=== PATIENT | female | born 1950 | race Caucasian/White ===

== ENCOUNTER 2020-09-08 02:12 | Emergency (ER) | payer MEDICARE, BC, SELFPAY ==
[2020-09-08] VITALS (24 sets, daily range): BP systolic 116–164; BP diastolic 59–82; PULSE 50–70; RESP 12–24; TEMP 36.7; O2SAT 94–100; BMI 25.8
--- NOTE | 2020-09-08 02:18 | DI.CT.S_ITS ---
PROCEDURE: CT HEAD/BRAIN WO CON INDICATIONS: Acute memory loss TECHNIQUE: Noncontrast 4.5 mm thick angled axial sections acquired from the foramen magnum to the vertex, with coronal and sagittal reformats. For radiation dose reduction, the following was used: automated exposure control, adjustment of mA and/or kV according to patient size. COMPARISON: None. FINDINGS: Image quality: Excellent. CSF spaces: Basal cisterns are patent. No extra-axial fluid collections. The ventricles are symmetric in size and shape. Brain: No intracranial bleeds or masses. There is cerebral volume loss for age, with resultant ventricular and sulcal prominence. There are periventricular and deep white matter chronic small vessel ischemic changes. There is intracranial internal carotid artery atherosclerosis. Skull and face: Calvarium and visualized facial bones appear intact, without suspicious lesions. Sinuses: Visualized sinuses and mastoids are clear. IMPRESSION: No acute intracranial process. Findings concordant with preliminary study interpretation. Dictated by: Edmond Catalan M.D. on 09/08/2020 at 8:14 Approved by: Edmond Catalan M.D. on 09/08/2020 at 8:17
--- NOTE | 2020-09-08 02:24 | DI.CT.S_ITS ---
PROCEDURE: CT ANGIO HEAD AND NECK INDICATIONS: code stroke, acute memory loss TECHNIQUE: After the administration of intravenous contrast, 1 mm thick sections acquired from the aortic arch through the [place] of [place]. Post-contrast 4.5 mm thick sections then re-acquired from the foramen magnum to the vertex. 3-dimensional [id number] (MIP) and/or volume rendering reformats were acquired of the central intracranial vasculature and neck separately. COMPARISON: None. FINDINGS: BRAIN: CSF spaces: Most of wall and Brain: No midline shift. No intracranial bleeds or masses. Schafer-white matter interface appears intact. Skull and face: Calvarium and facial bones appear intact, without suspicious lesions. Orbits appear normal. Sinuses: Sinuses and mastoids are clear. HEAD CT ANGIOGRAPHY: Anterior circulation: Intracranial internal carotid arteries (ICA): Diffuse atherosclerosis involving the right ICA with near occlusive stenosis at the precavernous segment. Otherwise, [id number] appears patent. Anterior cerebral arteries (JON): Patent. Middle cerebral arteries (MCA): Patent. Other: No aneurysms are seen. Posterior circulation: Visualized portions of the vertebral arteries: Patent. Mildly dominant appearance of the left vertebral artery. Basilar artery: Patent. Posterior cerebral arteries (FORKL[employer] SUPERVISOR): Patent. 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 There is mild ectasia at the junction of the right P1 and P2 segments. NECK CT ANGIOGRAPHY: Carotid atherosclerotic findings: Minimal calcified plaque. Common carotid artery (CCA) origins: Patent. Common carotid arteries (CCA): Patent. Internal carotid arteries (ICA): Mild diffuse narrowing of the right cervical ICA. There is tortuous appearance at the origin/proximal segment(rather than small dissection). This is best seen on the sagittal images. Vertebral artery origins: Calcific plaque seen at the origins of both vertebral arteries which appear patent Extracranial vertebral arteries: Patent. Mildly dominant appearance of the left vertebral artery. Basilar artery: Patent. Soft tissues: Visualized neck soft tissues demonstrate no suspicious abnormalities. Bones: No suspicious bony lesions. Cervical spondylosis and facet arthropathy. 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 Diffuse atherosclerotic narrowing involving the right internal carotid artery with near occlusive stenosis at the precavernous segment. Distal reconstitution and patent appearance of the [id number]. Findings concordant with preliminary study interpretation. Any quantitative measurements of stenosis were performed using NASCET criteria. Dictated by: Edmond Catalan M.D. on 09/08/2020 at 8:23 Approved by: Edmond Catalan M.D. on 09/08/2020 at 9:12
--- NOTE | 2020-09-08 02:50 | ED_ITS ---
HPI - Neuro Symptoms/Deficit <Jas Lee DO - Last Filed: 09/08/20 17:55> General Chief Complaint: Neuro Symptoms/Deficit Stated Complaint: sudden memory loss Time Seen by Provider: 09/08/20 02:16 Source: patient and family Mode of arrival: Ambulatory Limitations: no limitations History of Present Illness HPI Narrative: Patient is a 70-year-old female who is here with her son for eval uation of a acute episode where she became confused at home. Patient is from [place]. Her and her son who is with her at bedside arrived to the local area earlier this evening. This is where her son lives. According to the son they were sitting at home talking when the patient suddenly became confused. This occurred approximately 1 hour prior to arrival. There was no trauma. Upon arrival the patient did seem very anxious and somewhat reluctant to answer questions. Initially was difficult to obtain in HPI from the patient. On Anticoagulants: No Related Data Home Medications Medication Instructions Recorded Confirmed aspirin 81 mg tablet 81 mg PO QPM 09/08/20 09/08/20 fenofibrate nanocrystallized 145 145 mg PO QPM 09/08/20 09/08/20 mg tablet Previous Rx's Medication Instructions Recorded apixaban 5 mg tablet (Eliquis) 5 mg PO BID #30 tab 09/08/20 Allergies Allergy/AdvReac Type Severity Reaction Status Date / Time Penicillins Allergy Verified 09/08/20 02:33 Sulfa (Sulfonamide Allergy Verified 09/08/20 02:33 Antibiotics) Review of Systems <DO Andrey Christianson Last Filed: 09/08/20 17:55> Review of Systems ROS Unobtainable: Unobtainable due to mental condition Hematologic/Lymphatic On Anticoagulants: No Patient History <DO Andrey Christianson Last Filed: 09/08/20 17:55> Medical History Brain aneurysm Pulmonary embolism Social History Smoking Status: Unknown if ever smoked Smoking Status: Unknown if ever smoked alcohol intake frequency: holidays/special occasions only Substance Use Type: does not use Exam <DO Andrey Christianson Last Filed: 09/08/20 17:55> Initial Vital Signs Initial Vital Signs: Vital Signs Pulse Rate 67 09/08/20 02:21 Pulse Oximetry 99 09/08/20 02:21 Const General: healthy appearing, comfortable, well developed and well groomed HENMT Head: normal to inspection and normocephalic Eyes General: appearance normal, both eyes and all related structures Pupils: PERRL EOM: EOM intact bilaterally Neck Neck: normal visual inspection Chest Chest: No tenderness Resp Effort & Inspection: normal respiratory effort and not tachypneic Auscultation: clear to auscultation bilaterally Cardio Rate: regular rate Rhythm: regular rhythm GI Inspection: normal to inspection Palpation: soft Skin General: no rashes or lesions noted Neuro General: patient alert, patient awake and patient oriented x3 Cranial Nerves: CN's II-XI intact bilaterally Speech: other (Speech is slow but not slurred) Motor: muscle tone normal throughout Sensory Exam: no sensory deficits noted Extrem General: normal to inspection and capillary refill normal Psych Appearance: grossly normal and well kempt <Bettie Hendrix DO - Last Filed: 09/08/20 20:29> Initial Vital Signs Initial Vital Signs: Vital Signs Pulse Rate 67 09/08/20 02:21 Pulse Oximetry 99 09/08/20 02:21 Scores <DO Andrey Christianson Last Filed: 09/08/20 17:55> GCS [place] coma scale eye opening: Spontaneous Yara coma scale verbal response: Orientated [place] coma scale motor response: Obey commands [place] coma scale total score: 15 NIH Stroke Scale Level of Conciousness: Alert, keenly responsive Ask month/age: Answers both questions correctly. Open/close eyes, close hand: Performs both tasks correctly Best gaze horizontal: Normal Visual nascimento: No visual loss Facial palsy: Normal symetrical movement Left arm drift: No drift for full 10 sec Right arm drift: No drift for full 10 sec Left leg drift: No drift for full 5 sec Right leg drift: No drift for full 5 sec Limb ataxia: Absent Sensory on face/arms/legs: Normal, no sensory loss Best language: No aphasia, normal Dysarthria: Normal Extinction or inattention: No abnormality Total NIH Stroke scale score: 0 <DO Andrey Mchugh Last Filed: 09/08/20 20:29> GCS [place] coma scale total score: 15 NIH Stroke Scale Total NIH Stroke scale score: 0 Course <DO Andrey Christianson Last Filed: 09/08/20 17:55> Orders Ordered: Discontinued Medications Apixaban (Apixaban 5 Mg Tablet) 5 mg PO NOW ONE Stop: 09/08/20 10:04 Last Admin: 09/08/20 11:58 Dose: 5 mg Documented by: JOSH Vital Signs Vital signs: Vital Signs - 8 hr 09/08/20 12:30 09/08/20 12:31 09/08/20 13:00 Pulse Rate 53 L 54 L 52 L Respiratory Rate 14 15 13 Blood Pressure 141/67 H 143/65 H Pulse Oximetry 97 97 09/08/20 13:30 09/08/20 14:00 09/08/20 14:30 Pulse Rate 54 L 61 54 L Respiratory Rate 12 17 15 Blood Pressure 133/63 128/61 116/60 Pulse Oximetry 09/08/20 15:00 09/08/20 15:30 09/08/20 15:31 Pulse Rate 60 51 L 50 L Respiratory Rate 18 13 13 Blood Pressure 124/59 L 144/68 H Pulse Oximetry 09/08/20 16:00 Pulse Rate 54 L Respiratory Rate 14 Blood Pressure Pulse Oximetry 99 <Bettie Hendrix DO - Last Filed: 09/08/20 20:29> Orders Ordered: Discontinued Medications Apixaban (Apixaban 5 Mg Tablet) 5 mg PO NOW ONE Stop: 09/08/20 10:04 Last Admin: 09/08/20 11:58 Dose: 5 mg Documented by: JOSH Reevaluation(s) Reevaluation #1: [id number]-recheck patient states her symptoms have improved at this time. She is feeling much better. She was aware of a single aneurysm but not a secondary on MRI and dissection. Reevaluation #2: Patient updated again on MRI results, CTA angio and ECHO results. Patient placed on Eliquis 5mg BID. After discussion with patient. She had stopped her Coumadin in the past after having a brain fog. Patient's symptoms have cleared. We had reviewed her exam, findings here in the department, her observation here in the department. Patient is planning to return home to [place] in the next week. [place] town so asked to go ahead and call her primary care physician today or tomorrow to help facilitate follow-up as an outpatient with Neurology and preferably a stroke clinic if able but if Physical distance is prohibitive at minimum Neurology and potentially neurosurgery. Return precautions were discussed. Consultations Consultation #1: Spoke with telestroke regarding MRI changes. There was some change in comparison to patient's CT angiography although this may be secondary to modality. MRI this morning shows right possible age-indeterminate carotid dissection verses diffuse atherosclerosis, 3 mm saccular aneurysm at the anterior communicating as well as a 5 mm right posterior which was also noted on CT angiography. These were all read is no acute changes. Discussed with tele stroke who recommends that these are atypical places for abnormalities in terms of the atherosclerosis, and common area for dissection but is possible. And patient may have been symptomatic but there is no acute stroke changes or flares noted. She does recommend observation, 2D echo with bubble study and starting anticoagulation. At this time she recommends NOAC such as apixaban 5 mg b.i.d. and follow up with a stroke clinic for long-term care. Patient can follow-up [facility] if she continues to be local. Kuldeep called back, she did review the case with Dr. Ezequiel Jay with Neurosurgery who agrees with medication and plan. patient and son have contact information below for stroke clinic as well as Neurosurgery office. Consultation #2: Dr. Gann, hospitalist if negative ECHO. Plan for discharge from ED. Patient if has negative work up with ECHO and admitted would be discharged today as well. Vital Signs Vital signs: Vital Signs - 8 hr 09/08/20 12:30 09/08/20 12:31 09/08/20 13:00 Pulse Rate 53 L 54 L 52 L Respiratory Rate 14 15 13 Blood Pressure 141/67 H 143/65 H Pulse Oximetry 97 97 09/08/20 13:30 09/08/20 14:00 09/08/20 14:30 Pulse Rate 54 L 61 54 L Respiratory Rate 12 17 15 Blood Pressure 133/63 128/61 116/60 Pulse Oximetry 09/08/20 15:00 09/08/20 15:30 09/08/20 15:31 Pulse Rate 60 51 L 50 L Respiratory Rate 18 13 13 Blood Pressure 124/59 L 144/68 H Pulse Oximetry 09/08/20 16:00 Pulse Rate 54 L Respiratory Rate 14 Blood Pressure Pulse Oximetry 99 MDM - Neuro Symptoms/Deficit <Jas Lee DO - Last Filed: 09/08/20 17:55> Lab Data Attestation: I reviewed the patient's lab results. Result diagrams: 09/08/20 02:30 09/08/20 02:30 Labs: Lab Results 09/08/20 09/08/20 09/08/20 Range/Units 02:30 02:30 02:58 WBC 6.5 (4.5-11.0) X10^3/uL RBC 4.81 (4.0-5.2) X10^6/uL Hgb 14.3 (12.0-16.0) g/dL Hct 42.1 (36-46) % MCV 87.5 (80-100) fL MCH 29.8 (26-34) PG MCHC 34.1 (30-36) % RDW 14.0 (11.6-14.8) % Plt Count 267 (150-400) X10^3/uL Neut % (Auto) 43.7 L (50-75) % Lymph % (Auto) 42.0 H (25-40) % Pierce % (Auto) 8.6 (3-14) % Eos % (Auto) 4.7 H (2-4) % Baso % (Auto) 1.0 (0-2) % Neut # (Auto) 2900 (8634-0229) /uL Lymph # (Auto) 2700 (8328-1906) /uL Pierce # (Auto) 600 (0-900) /uL Eos # (Auto) 300 (0-450) /uL Baso # (Auto) 100 (0-100) /uL Sodium 142 (137-145) mmol/L Potassium 3.6 (3.4-5.1) mmol/L Chloride 110 H (98-107) mmol/L Carbon Dioxide 26 (22-32) mmol/L BUN 25 H (7-17) mg/dL Creatinine 1.34 H (0.52-1.04) mg/dL Estimated GFR 39.1 L (>60) mL/min BUN/Creatinine Ratio 18.7 (6-22) Glucose 96 (80-110) mg/dL Calcium 9.8 (8.4-10.2) mg/dL Total Bilirubin 0.7 (0.2-1.3) mg/dL AST 31 (14-36) IU/L ALT 24 (<35) IU/L Alkaline Phosphatase 55 (38-126) U/L Total Protein 7.3 (6.3-8.2) g/dL Albumin 4.5 (3.5-5.0) g/dL Globulin 2.8 (1.7-4.1) g/dL Albumin/Globulin Ratio 1.6 (1.0-2.8) Lipase 134 (23-300) U/L Urine Color Yellow Urine Appearance Clear Urine pH 7.0 (4.5-8.0) Ur Specific [place] <=1.005 (1.000-1.035) Urine Protein Negative (Negative) Urine Glucose (UA) Negative (Negative) g/dL Urine Ketones Negative (NEGATIVE) Urine Occult Blood 1+ H (Negative) Urine Nitrate Negative (Negative) Urine Bilirubin Negative (NEGATIVE) Urine Urobilinogen 0.2 (0.2) E.U./dL Ur Leukocyte Esterase Trace H (NEGATIVE) Urine RBC None seen (0-5/HPF) Urine WBC None seen (0-5/HPF) Urine Bacteria None seen (None) Ur Culture Indicated? Cult not indicated U Opiates 300ng/mL cut (Negative) Ur Oxycodone Screen (Negative) Urine Methadone Screen (Negative) Ur Barbiturates Screen (Negative) U Tricyclic Antidepress (Negative) Ur Phencyclidine Scrn (Negative) Ur Amphetamines Screen (Negative) U Methamphetamines Scrn (Negative) Ur MDMA Scrn (Ecstasy) (Negative) U Benzodiazepines Scrn (Negative) Urine Cocaine Screen (Negative) U Marijuana (THC) Screen (Negative) Ethyl Alcohol < 10 ( - 10) mg/dL SARS-CoV-2 (PCR) (Negative) 09/08/20 09/08/20 Range/Units 02:58 03:05 WBC (4.5-11.0) X10^3/uL RBC (4.0-5.2) X10^6/uL Hgb (12.0-16.0) g/dL Hct (36-46) % MCV (80-100) fL MCH (26-34) PG MCHC (30-36) % RDW (11.6-14.8) % Plt Count (150-400) X10^3/uL Neut % (Auto) (50-75) % Lymph % (Auto) (25-40) % Pierce % (Auto) (3-14) % Eos % (Auto) (2-4) % Baso % (Auto) (0-2) % Neut # (Auto) (2926-1371) /uL Lymph # (Auto) (3591-3324) /uL Pierce # (Auto) (0-900) /uL Eos # (Auto) (0-450) /uL Baso # (Auto) (0-100) /uL Sodium (137-145) mmol/L Potassium (3.4-5.1) mmol/L Chloride (98-107) mmol/L Carbon Dioxide (22-32) mmol/L BUN (7-17) mg/dL Creatinine (0.52-1.04) mg/dL Estimated GFR (>60) mL/min BUN/Creatinine Ratio (6-22) Glucose (80-110) mg/dL Calcium (8.4-10.2) mg/dL Total Bilirubin (0.2-1.3) mg/dL AST (14-36) IU/L ALT (<35) IU/L Alkaline Phosphatase (38-126) U/L Total Protein (6.3-8.2) g/dL Albumin (3.5-5.0) g/dL Globulin (1.7-4.1) g/dL Albumin/Globulin Ratio (1.0-2.8) Lipase (23-300) U/L Urine Color Urine Appearance Urine pH (4.5-8.0) Ur Specific [place] (1.000-1.035) Urine Protein (Negative) Urine Glucose (UA) (Negative) g/dL Urine Ketones (NEGATIVE) Urine Occult Blood (Negative) Urine Nitrate (Negative) Urine Bilirubin (NEGATIVE) Urine Urobilinogen (0.2) E.U./dL Ur Leukocyte Esterase (NEGATIVE) Urine RBC (0-5/HPF) Urine WBC (0-5/HPF) Urine Bacteria (None) Ur Culture Indicated? U Opiates 300ng/mL cut Negative (Negative) Ur Oxycodone Screen Negative (Negative) Urine Methadone Screen Negative (Negative) Ur Barbiturates Screen Negative (Negative) U Tricyclic Antidepress Negative (Negative) Ur Phencyclidine Scrn Negative (Negative) Ur Amphetamines Screen Negative (Negative) U Methamphetamines Scrn Negative (Negative) Ur MDMA Scrn (Ecstasy) Negative (Negative) U Benzodiazepines Scrn Negative (Negative) Urine Cocaine Screen Negative (Negative) U Marijuana (THC) Screen Negative (Negative) Ethyl Alcohol ( - 10) mg/dL SARS-CoV-2 (PCR) Negative (Negative) Imaging Data CT scan - head: Radiologist's Impression: No acute intracranial findings CT angio head neck: Radiologist's Impression: Patent neck CTA Atherosclerotic changes of the intracranial right internal carotid artery with severe near occlusive stenosis of the pre-catheter segment. Vessels remain patent about the [place]. 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 Ectasia of the right posterior cerebral artery P1 P2 junction ECG Data Attestation: I personally reviewed and interpreted this ECG as follows: Interpretation: Sinus rhythm Ventricular rate is 63 Normal axis Normal QRS Normal QTC No ST T wave changes MDM Narrative Medical decision making narrative: Upon arrival was somewhat difficult to obtain in HPI from the patient. She did not have any repetitive questioning but did not volunteer any information. She was able to speak without any slurring of the words but she was somewhat slow to do so. Her NIH score was 0. She was alert oriented x3 and had a GCS of 15. Her head CT was unremarkable. The CTA of her head neck showed the abnormalities as listed above. I did discuss the case with Stroke Neurology who agreed with no tPA given her clinical presentation. Much of the HPI the review of systems was provided by the patient's son who is at bedside. Upon re-evaluation the patient stated that she was feeling much better. She stated that she recognized that she was sitting at home and then suddenly did not recognize where she was. She states she knew that she was brought into the kitchen and again did not recognize the kitchen. Her physical exam and history is not consistent with a seizure. Not consistent with hypoglycemia. Did consider TGA given her presentation in this still could be the cause of her symptoms. There is no signs of a head bleed. There is no bed availability for admission to this facility so plan of his to keep her in the emergency department and obtain an MRI later this morning for further evaluation. Care turned over to Dr. Hendrix to follow-up on MRI and disposition. <Bettie Hendrix, DO - Last Filed: 09/08/20 20:29> Lab Data Labs: Lab Results 09/08/20 09/08/20 09/08/20 Range/Units 02:30 02:30 02:58 WBC 6.5 (4.5-11.0) X10^3/uL RBC 4.81 (4.0-5.2) X10^6/uL Hgb 14.3 (12.0-16.0) g/dL Hct 42.1 (36-46) % MCV 87.5 (80-100) fL MCH 29.8 (26-34) PG MCHC 34.1 (30-36) % RDW 14.0 (11.6-14.8) % Plt Count 267 (150-400) X10^3/uL Neut % (Auto) 43.7 L (50-75) % Lymph % (Auto) 42.0 H (25-40) % Pierce % (Auto) 8.6 (3-14) % Eos % (Auto) 4.7 H (2-4) % Baso % (Auto) 1.0 (0-2) % Neut # (Auto) 2900 (5681-3326) /uL Lymph # (Auto) 2700 (3718-0855) /uL Pierce # (Auto) 600 (0-900) /uL Eos # (Auto) 300 (0-450) /uL Baso # (Auto) 100 (0-100) /uL Sodium 142 (137-145) mmol/L Potassium 3.6 (3.4-5.1) mmol/L Chloride 110 H (98-107) mmol/L Carbon Dioxide 26 (22-32) mmol/L BUN 25 H (7-17) mg/dL Creatinine 1.34 H (0.52-1.04) mg/dL Estimated GFR 39.1 L (>60) mL/min BUN/Creatinine Ratio 18.7 (6-22) Glucose 96 (80-110) mg/dL Calcium 9.8 (8.4-10.2) mg/dL Total Bilirubin 0.7 (0.2-1.3) mg/dL AST 31 (14-36) IU/L ALT 24 (<35) IU/L Alkaline Phosphatase 55 (38-126) U/L Total Protein 7.3 (6.3-8.2) g/dL Albumin 4.5 (3.5-5.0) g/dL Globulin 2.8 (1.7-4.1) g/dL Albumin/Globulin Ratio 1.6 (1.0-2.8) Lipase 134 (23-300) U/L Urine Color Yellow Urine Appearance Clear Urine pH 7.0 (4.5-8.0) Ur Specific [place] <=1.005 (1.000-1.035) Urine Protein Negative (Negative) Urine Glucose (UA) Negative (Negative) g/dL Urine Ketones Negative (NEGATIVE) Urine Occult Blood 1+ H (Negative) Urine Nitrate Negative (Negative) Urine Bilirubin Negative (NEGATIVE) Urine Urobilinogen 0.2 (0.2) E.U./dL Ur Leukocyte Esterase Trace H (NEGATIVE) Urine RBC None seen (0-5/HPF) Urine WBC None seen (0-5/HPF) Urine Bacteria None seen (None) Ur Culture Indicated? Cult not indicated U Opiates 300ng/mL cut (Negative) Ur Oxycodone Screen (Negative) Urine Methadone Screen (Negative) Ur Barbiturates Screen (Negative) U Tricyclic Antidepress (Negative) Ur Phencyclidine Scrn (Negative) Ur Amphetamines Screen (Negative) U Methamphetamines Scrn (Negative) Ur MDMA Scrn (Ecstasy) (Negative) U Benzodiazepines Scrn (Negative) Urine Cocaine Screen (Negative) U Marijuana (THC) Screen (Negative) Ethyl Alcohol < 10 ( - 10) mg/dL SARS-CoV-2 (PCR) (Negative) 09/08/20 09/08/20 Range/Units 02:58 03:05 WBC (4.5-11.0) X10^3/uL RBC (4.0-5.2) X10^6/uL Hgb (12.0-16.0) g/dL Hct (36-46) % MCV (80-100) fL MCH (26-34) PG MCHC (30-36) % RDW (11.6-14.8) % Plt Count (150-400) X10^3/uL Neut % (Auto) (50-75) % Lymph % (Auto) (25-40) % Pierce % (Auto) (3-14) % Eos % (Auto) (2-4) % Baso % (Auto) (0-2) % Neut # (Auto) (9597-9509) /uL Lymph # (Auto) (0674-6704) /uL Pierce # (Auto) (0-900) /uL Eos # (Auto) (0-450) /uL Baso # (Auto) (0-100) /uL Sodium (137-145) mmol/L Potassium (3.4-5.1) mmol/L Chloride (98-107) mmol/L Carbon Dioxide (22-32) mmol/L BUN (7-17) mg/dL Creatinine (0.52-1.04) mg/dL Estimated GFR (>60) mL/min BUN/Creatinine Ratio (6-22) Glucose (80-110) mg/dL Calcium (8.4-10.2) mg/dL Total Bilirubin (0.2-1.3) mg/dL AST (14-36) IU/L ALT (<35) IU/L Alkaline Phosphatase (38-126) U/L Total Protein (6.3-8.2) g/dL Albumin (3.5-5.0) g/dL Globulin (1.7-4.1) g/dL Albumin/Globulin Ratio (1.0-2.8) Lipase (23-300) U/L Urine Color Urine Appearance Urine pH (4.5-8.0) Ur Specific [place] (1.000-1.035) Urine Protein (Negative) Urine Glucose (UA) (Negative) g/dL Urine Ketones (NEGATIVE) Urine Occult Blood (Negative) Urine Nitrate (Negative) Urine Bilirubin (NEGATIVE) Urine Urobilinogen (0.2) E.U./dL Ur Leukocyte Esterase (NEGATIVE) Urine RBC (0-5/HPF) Urine WBC (0-5/HPF) Urine Bacteria (None) Ur Culture Indicated? U Opiates 300ng/mL cut Negative (Negative) Ur Oxycodone Screen Negative (Negative) Urine Methadone Screen Negative (Negative) Ur Barbiturates Screen Negative (Negative) U Tricyclic Antidepress Negative (Negative) Ur Phencyclidine Scrn Negative (Negative) Ur Amphetamines Screen Negative (Negative) U Methamphetamines Scrn Negative (Negative) Ur MDMA Scrn (Ecstasy) Negative (Negative) U Benzodiazepines Scrn Negative (Negative) Urine Cocaine Screen Negative (Negative) U Marijuana (THC) Screen Negative (Negative) Ethyl Alcohol ( - 10) mg/dL SARS-CoV-2 (PCR) Negative (Negative) Imaging Data MRI : Radiologist's Impression: Jaycee Cisse 70 F 1950 [place] [address] [place] [id number] Resonance ReportSig kristin Patient: Jaycee Cisse [facility]#: [id number]: 1950cct:[id number]/Sex: 70 / FDate of Service: 09/08/20Loc: EDAccession Number: [id number] Procedure: MR stroke Ordering Provider: Jas Lee D.O. PROCEDURE: MR STROKE Pre- and post-contrast brain MRI, non-contrast brain MR angiogram, pre- and postcontrast neck MR angiogram INDICATIONS: acute confusion eval for stroke TECHNIQUE: Brain: Noncontrast axial T1 spin echo, axial T2 fast spin echo, sagittal and axial FLAIR, coronal T2 fast spin echo, axial gradient echo, axial diffusion and ADC through the brain. After the administration of contrast, axial 3D VIBE of the cranial vasculature and brain. Brain MRA: Non-contrast 3-D time of flight MR angiogram, with multiple yzrgmtq-fsmoxdrka-ptvkkexpuu (MIP) reformats performed. Neck MRA: Axial and sagittal TruFISP through the neck. Coronal dynamic MR angiogram during administration of contrast in the arterial and venous phases, with 3-dimenstional ibneanz-yriwmfazt-rrfubpnkol (MIP) reformats constructed from subtraction images. COMPARISON: [facility], CT, CT ANGIO HEAD AND NECK, 09/08/2020, 2:31. FINDINGS: Image quality: Excellent. BRAIN: CSF spaces: Ventricles are normal in size and shape. Basal cisterns are patent. No extra-axial fluid collections. Brain: No intracranial bleeds or mass effects. There is mild diffuse cerebral volume loss. Mild degree of patchy high FLAIR signal within the periventricular and subcortical white matter. Schafer-white matter interface is normal. Diffusion weighted images show no acute ischemic insults. Brainstem appears normal. Normal intravascular flow voids are present. No abnormal intracranial enhancement. Skull and face: Calvarial marrow signal is normal. Orbits appear normal. Sinuses: Sinuses and mastoids are clear. BRAIN MR ANGIOGRAM: Anterior circulation: There is severe narrowing of the pre cavernous segment of the right internal carotid artery, which may be secondary to age indeterminate dissection. Left internal carotid artery is patent. Bilateral middle and anterior cerebral arteries are patent. 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 Posterior circulation: Bilateral vertebral arteries are patent. Basilar artery is patent. Left posterior cerebral artery is patent. There is aneurysmal d ilatation of the proximal right posterior cerebral artery, measuring 5 mm diameter. Ectasia of the P1/P2 segment of the right posterior cerebral artery. NECK MR ANGIOGRAM: The thoracic aortic arch is widely patent. There is standard branching anatomy. Innominate, right subclavian, and right vertebral arteries are patent. Right common and external carotid arteries are patent. There is moderate, roughly 50% narrowing of the proximal right internal carotid artery. There is high-grade stenosis of the pre cavernous segment of the right internal carotid artery. Left common, internal, and external carotid arteries are patent. Left subclavian and left vertebral arteries are patent. Radiologic Technician T2 imaging of the neck is grossly unremarkable. IMPRESSION: BRAIN MRI: 1. No acute process. No recent infarct. 2. Volume loss and small vessel ischemic disease. BRAIN MR ANGIOGRAM: 1. 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 2. 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 3. High-grade narrowing of the right pre cavernous internal carotid artery, possibly secondary to age indeterminate dissection. NECK MR ANGIOGRAM: 1. High-grade right pre cavernous internal carotid artery stenosis. Moderate right proximal internal carotid artery stenosis. 2. No significant left internal carotid artery stenosis. 3. Patent bilateral vertebral arteries. Dictated by: Milvia Mendoza M.D. on 09/08/2020 at 8:48 Approved by: Milvia Mendoza M.D. on 09/08/2020 at 8:59 ECHO: Radiologist's Impression: Chart Viewer Diagnostics DATE TYPE STATUS REF RANGE/AUTHOR Hx Today 10:03 Tejinder Ortega Today 04:07 Milvia Mendoza Today 02:24 Edmond Catalan Today 02:18 Edmond Catalan 70, F0 1950 [facility], Main ED R02 167.64cm 72.575kg BMI: 25.8kg/m? Neuro Symptoms/Deficit Search Chart No Data to Display ONSET Today 15:00 Jaycee Cisse 70 F [address] [id number] ReportSigned Patient: VirginiaJaycee AMR#: [id number]: 1950cct:[id number]/Sex: 70 / FDate of Service: 09/08/20Loc: EDAccession Number: [id number] Procedure: EC echo doppler complete Ordering Provider: Bettie Hendrix D.O. +---------+ Hospital +---------+ : : [address] : : : : [place] : : : : [id number] : : : : Phone: [phone] Echocardiogram Report + + :Name: JAYCEE CISSE Study Date: 09/08/2020 Height: 66 in : :[facility] ReadingLocation: Weight: 160 lb : : Gender: Female BSA: 1.8 m2 : :: 1950 Age: 70 yrs BP: 137/65 mmHg: :Reason For Study: CVA : :Ordering Physician: RUMA, : :BETTIE Performed By: Gabi Cabrales : :Referring: BETTIE HENDRIX : + + Interpretation Summary 1) Normal left ventricular thickness, size, wall motion, and systolic function (EF 60-65%). 2) Normal right ventricular size and function. 3) No significant valvular abnormalities. 4) Injection of contrast documented no interatrial shunt. 5) No prior Echo available for comparison. Findings discussed with the ER charge nurse (Brook Alexia) Procedure: A two-dimensional transthoracic echocardiogram with color flow and Doppler was performed. The study quality was technically adequate. A saline contrast injection was performed to assess for cardiac shunting. There is no prior echocardiogram noted for this patient. The patient was in sinus bradycardia with heart rates between 50-56 bpm during the exam. Left Ventricle: The left ventricle is normal in size and wall thickness. The ejection fraction is estimated to be 60-65%. Diastolic parameters suggest probable normal left ventricular diastolic function and normal filling pressures. Right Ventricle: The right ventricle is normal in size and function. Atria: The left atrial size is normal. Right atrial size is normal. There is no Doppler evidence for an interatrial shunt. Injection of contrast documented no interatrial shunt. Mitral Valve: The mitral valve is normal in structure and function. There is trace mitral regurgitation. Aortic Valve: The aortic valve is trileaflet. The aortic valve opens well. There is no aortic valve stenosis. No aortic regurgitation is present. Tricuspid Valve: The tricuspid valve is normal in structure and function. There is trace tricuspid regurgitation. Pulmonary artery pressures cannot be estimated because of the lack of a measurable TR jet velocity but the IVC suggests a CVP of around 3 mmHg. Pulmonic Valve: The pulmonic valve leaflets are thin and pliable; valve motion is normal. There is no pulmonic valvular regurgitation. Great Vessels: The aortic root is normal size. The dimensions of the ascending aorta are normal. The IVC is of normal diameter and collapses greater than 50% with a sniff. This suggests a low right atrial pressure of 3 mm Hg. Pericardium/ Pleura There is no pericardial effusion. There is no pleural effusion. MMode/2D Measurements & Calculations LVIDd: 4.4 cm LVOT diam: 2.1 cm LVIDs: 3.3 cm Ao root diam: 3.4 cm FS: 26.0 % asc Aorta Diam: 3.1 cm IVSd: 1.0 cm Ao Arch Diam (Prox Trans): 2.4 cm LVPWd: 0.90 cm LV serrano. diameter/BSA (cm/m^2): 2.4 LV sys. diameter/BSA (cm/m^2): 1.8 LA A2 area: 15.7 cm2 RA long axis: 4.6 cm LA A4 area: 12.8 cm2 RA area: 13.9 cm2 LA length (vol): 4.1 cm RA vol: 36.1 ml LA vol: 41.8 ml RA : 19.8 ml/m2 LA vol index: 23.0 ml/m2 IVC diam: 1.6 cm RVD1 (basal): 3.2 cm TAPSE: 2.0 cm Doppler Measurements & Calculations Ao V2 max: 98.8 cm/sec LVOT Max Christian: 67.9 cm/sec Ao V2 mean: 68.1 cm/sec LV V1 max P.8 mmHg Ao max P.9 mmHg LV V1 VTI: 17.2 cm Ao mean P.1 mmHg WILFRIDO(I,D): 2.1 cm2 Ao V2 VTI: 27.0 cm WILFRIDO(V,D): 2.3 cm2 sev ratio: 0.64 WILFRIDO indexed to BSA (cm^2/m^2): 1.2 MV E max christian: 63.4 cm/sec PA V2 max: 62.8 cm/sec MV A max christian: 57.6 cm/sec PA V2 mean: 43.8 cm/sec MV E/A: 1.1 PA mean P.86 mmHg Med Peak E' Christian: 6.5 cm/sec PA pr(Accel): 31.0 mmHg E/E' med: 9.8 Lat Peak E' Christian: 8.0 cm/sec E/E' lat: 7.9 E/e' average: 8.9 MV dec time: 0.19 sec SV(LVOT): 57.5 ml Reading Physician:02:41 PM [facility] Narrative Medical decision making narrative: Upon arrival was somewhat difficult to obtain in HPI from the patient. She did not have any repetitive questioning but did not volunteer any information. She was able to speak without any slurring of the words but she was somewhat slow to do so. Her NIH score was 0. She was alert oriented x3 and had a GCS of 15. Her head CT was unremarkable. The CTA of her head neck showed the abnormalities as listed above. I did discuss the case with Stroke Neurology who agreed with no tPA given her clinical presentation. Much of the HPI the review of systems was provided by the patient's son who is at bedside. Upon re-evaluation the patient stated that she was feeling much better. She stated that she recognized that she was sitting at home and then suddenly did not recognize where she was. She states she knew that she was brought into the kitchen and again did not recognize the kitchen. Her physical exam and history is not consistent with a seizure. Not consistent with hypoglycemia. Did consider TGA given her presentation in this still could be the cause of her symptoms. There is no signs of a head bleed. There is no bed availability for admission to this facility so plan of his to keep her in the emergency department and obtain an MRI later this morning for further evaluation. Care turned over to Dr. Hendrix to follow-up on MRI and disposition. This is a 70-year-old female who was signed out by Dr. Lee to myself. Patient was seen evaluated by myself independently. Her case was reviewed her mentation has cleared significantly since last night. CTA of head and neck was reviewed, MRI was obtained and does show Um possible changes noted above. This was reviewed with tele stroke with Dr. Light who gave above recommendations. 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 Patient also has 2 aneurysms noted 1 which patient was clearly aware of. These do not appear to be acute or acutely bleeding. Neuro surgery was also consulted by Dr. Light who reviewed the case and images on agrees with current plan. Patient was kept for observation here in the department, echo was obtained with bubble study which is negative. Patient had continued improvement and plan to discharge on new medications. Patient was asked to contact us if she has any difficulty or financial hardship as we could potentially change her medication. She lives in [place] and does not live locally and is leaving in the next week so asked to contact her primary care to help facilitate the best follow-up for her. Contact information for the stroke clinic in [place] as well as the neurosurgery clinic in [place] was also provided and come possibly give some assistance with follow-up. All questions were answered, return precautions were discussed. Patient has not had any new neurologic changes throughout her stay. Discharge Plan Departure Patient Disposition: Home Clinical Impression: Acute confusion Instructions: DI for Brain Aneurysm Activity Restrictions/Additional Instructions: Your imaging and studies were discussed with neurology via tele-stroke, Dr. Light. Your case was also reviewed by Neurosurgery. With your symptoms today, your MRI findings neurology recommends restarting you on anticoagulation at this time Eliquis 5 mg twice daily. Your imaging today shows 2 aneurysms as well as changes on the right sided blood vessels. Prescription was sent to [facility] in [place]. Please call your primary care physician to help you establish with a neurologi st, if an option a stroke clinic is preferred if this is not an option neurology or neurosurgery are both options. A MRI copy is included on the disc provided today take this with you to provide with the specialty providers you see. Also included is the Neurosurgery office of Dr. Ezequiel Jay at [phone] (this is Neurosurgeon who reviewed your case today with Dr. Light). As well as the neurology stroke clinic, the contact number is [phone] You can contact these numbers for follow up in [place] and they may be able to assist in selecting a follow up location in [place]. Please return for new or worsening symptoms, severe headaches, recurrent altered mental status, persistent vomiting, new numbness, weakness, difficulty with speech, inability to move appropriately, passing out, new chest pain or shortness of breath or other new or concerning symptoms. Prescriptions: New Eliquis 5 mg tablet 5 mg PO BID Qty: 30 RF: 0 No Action Adult Low Dose Aspirin 81 mg Tablet 81 mg PO QPM RF: 0 fenofibrate nanocrystallized 145 mg tablet 145 mg PO QPM RF: 0 Referrals: Massimo Light MD [Primary Care Provider] -
[2020-09-08 02:55] LABS: Alanine Aminotransferase 24 IU/L (<35); Albumin 4.5 g/dL (3.5-5.0); Albumin Globulin Ratio 1.6 (1.0-2.8); Alkaline Phosphatase 55 U/L (38-126); Aspartate Aminotransferase 31 IU/L (14-36); BUN Creatinine Ratio 18.7 (6-22); Bilirubin Total 0.7 mg/dL (0.2-1.3); Blood Urea Nitrogen 25 mg/dL (7-17); Calcium 9.8 mg/dL (8.4-10.2); Carbon Dioxide 26 mmol/L (22-32); Chloride 110 mmol/L (98-107); Estimated Glomerular Filt Rate 39.1 mL/min (>60); Ethanol (ETOH) < 10 mg/dL; Globulin 2.8 g/dL (1.7-4.1); Glucose 96 mg/dL (80-110); HEMOLYSIS < 15 (0-50); Lipase 134 U/L (23-300); Potassium 3.6 mmol/L (3.4-5.1); Sodium 142 mmol/L (137-145); Total Protein 7.3 g/dL (6.3-8.2)
[2020-09-08 02:59] LABS: Add Manual Diff / Slide Review NO; Basophils Absolute Auto 100 /uL (0-100); Eosinophils Absolute Auto 300 /uL (0-450); Eosinophils Percent Auto 4.7 % (2-4); Hematocrit 42.1 % (36-46); Hemoglobin 14.3 g/dL (12.0-16.0); Lymphocytes Absolute Auto 2700 /uL (1100-4500); Mean Corpuscular HGB Conc 34.1 % (30-36); Mean Corpuscular Hemoglobin 29.8 PG (26-34); Mean Corpuscular Volume 87.5 fL (80-100); Monocytes Absolute Auto 600 /uL (0-900); Monocytes Percent Auto 8.6 % (3-14); Neutrophils Absolute Auto 2900 /uL (1500-7000); Neutrophils Percent Auto 43.7 % (50-75); Platelet Count 267 X10^3/uL (150-400); Red Blood Cell Count 4.81 X10^6/uL (4.0-5.2); White Blood Cell Count 6.5 X10^3/uL (4.5-11.0)
[2020-09-08 03:03] LABS: Bacteria Urine None Seen; RBC Urine None Seen (0-5/HPF); WBC Urine None Seen (0-5/HPF)
[2020-09-08 03:06] LABS: Appearance Urine UA CLEAR; Bilirubin Urine UA NEGATIVE (NEGATIVE); Color Urine UA YELLOW; Glucose Urine UA NEGATIVE (Negative); Ketones Urine UA NEGATIVE (NEGATIVE); Leukocyte Esterase Urine UA TRACE (NEGATIVE); Nitrite Urine UA NEGATIVE (Negative); Occult Blood Urine UA 1+ (Negative); Protein Urine UA NEGATIVE (Negative); Specific Gravity Urine UA <=1.005 (1.000-1.035); Urobilinogen Urine UA 0.2 E.U./dL (0.2)
[2020-09-08 03:11] LABS: UR Morphine/Opiate cutoff 300 Negative (Negative); Ur Creatinine 20 (Normal); Ur Specific Gravity <1.005 (Normal); Urine Amphetamines Negative (Negative); Urine Barbiturates Negative (Negative); Urine Benzodiazepines Negative (Negative); Urine Cocaine Negative (Negative); Urine MDMA Negative (Negative); Urine Methadone Negative (Negative); Urine Methamphetamines Negative (Negative); Urine Oxycodone Negative (Negative); Urine Phencyclidine Negative (Negative); Urine Tetrahydrocannabinol Negative (Negative); Urine Tricyclic Antidepressant Negative (Negative); Urine pH 7 (Normal)
[2020-09-08 03:46] LABS: Culture Indicated Urine Cult Not Indicated
--- NOTE | 2020-09-08 04:07 | DI.MRI.S_ITS ---
PROCEDURE: MR STROKE Pre- and post-contrast brain MRI, non-contrast brain MR angiogram, pre- and postcontrast neck MR angiogram INDICATIONS: acute confusion eval for stroke TECHNIQUE: Brain: Noncontrast axial T1 spin echo, axial T2 fast spin echo, sagittal and axial FLAIR, coronal T2 fast spin echo, axial gradient echo, axial diffusion and ADC through the brain. After the administration of contrast, axial 3D VIBE of the cranial vasculature and brain. Brain MRA: Non-contrast 3-D time of flight MR angiogram, with multiple uktfamh-mowtrmvbh-ffjcmcmybm (MIP) reformats performed. Neck MRA: Axial and sagittal TruFISP through the neck. Coronal dynamic MR angiogram during administration of contrast in the arterial and venous phases, with 3-dimenstional kleyfww-vuqvwjtdz-eckrpswrlt (MIP) reformats constructed from subtraction images. COMPARISON: [facility], CT, CT ANGIO HEAD AND NECK, 09/08/2020, 2:31. FINDINGS: Image quality: Excellent. BRAIN: CSF spaces: Ventricles are normal in size and shape. Basal cisterns are patent. No extra-axial fluid collections. Brain: No intracranial bleeds or mass effects. There is mild diffuse cerebral volume loss. Mild degree of patchy high FLAIR signal within the periventricular and subcortical white matter. Schafer-white matter interface is normal. Diffusion weighted images show no acute ischemic insults. Brainstem appears normal. Normal intravascular flow voids are present. No abnormal intracranial enhancement. Skull and face: Calvarial marrow signal is normal. Orbits appear normal. Sinuses: Sinuses and mastoids are clear. BRAIN MR ANGIOGRAM: Anterior circulation: There is severe narrowing of the pre cavernous segment of the right internal carotid artery, which may be secondary to age indeterminate dissection. Left internal carotid artery is patent. Bilateral middle and anterior cerebral arteries are patent. 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 Posterior circulation: Bilateral vertebral arteries are patent. Basilar artery is patent. Left posterior cerebral artery is patent. There is aneurysmal dilatation of the proximal right posterior cerebral artery, measuring 5 mm diameter. Ectasia of the P1/P2 segment of the right posterior cerebral artery. NECK MR ANGIOGRAM: The thoracic aortic arch is widely patent. There is standard branching anatomy. Innominate, right subclavian, and right vertebral arteries are patent. Right common and external carotid arteries are patent. There is moderate, roughly 50% narrowing of the proximal right internal carotid artery. There is high-grade stenosis of the pre cavernous segment of the right internal carotid artery. Left common, internal, and external carotid arteries are patent. Left subclavian and left vertebral arteries are patent. 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 IMPRESSION: BRAIN MRI: 1. No acute process. No recent infarct. 2. Volume loss and small vessel ischemic disease. BRAIN MR ANGIOGRAM: 1. 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 2. 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 3. High-grade narrowing of the right pre cavernous internal carotid artery, possibly secondary to age indeterminate dissection. NECK MR ANGIOGRAM: 1. High-grade right pre cavernous internal carotid artery stenosis. Moderate right proximal internal carotid artery stenosis. 2. No significant left internal carotid artery stenosis. 3. Patent bilateral vertebral arteries. Dictated by: Milvia Mendoza M.D. on 09/08/2020 at 8:48 Approved by: Milvia Mendoza M.D. on 09/08/2020 at 8:59
[2020-09-08 04:53] LABS: COVID19 - ADMIT (NP swab/PCR) Negative (Negative)
--- NOTE | 2020-09-08 10:03 | DI.ECHO.S_ITS ---
[facility] +---------+ : : [address] : [place] : : : : [id number] : : : : Phone: [phone] Echocardiogram Report + + :Name: BARBIE CISSE Study Date: 09/08/2020 Height: 66 in : :[facility] ReadingLocation: Weight: 160 lb : : Gender: Female BSA: 1.8 m2 : :: 1950 Age: 70 yrs BP: 137/65 mmHg: :Reason For Study: CVA : :Ordering Physician: RUMA, : :BETTIE Performed By: Gabi Cabrales : :Referring: BETTIE HENDRIX : + + Interpretation Summary 1) Normal left ventricular thickness, size, wall motion, and systolic function (EF 60-65%). 2) Normal right ventricular size and function. 3) No significant valvular abnormalities. 4) Injection of contrast documented no interatrial shunt. 5) No prior Echo available for comparison. Findings discussed with the ER charge nurse (Brook Hale) Procedure: A two-dimensional transthoracic echocardiogram with color flow and Doppler was performed. The study quality was technically adequate. A saline contrast injection was performed to assess for cardiac shunting. There is no prior echocardiogram noted for this patient. The patient was in sinus bradycardia with heart rates between 50-56 bpm during the exam. Left Ventricle: The left ventricle is normal in size and wall thickness. The ejection fraction is estimated to be 60-65%. Diastolic parameters suggest probable normal left ventricular diastolic function and normal filling pressures. Right Ventricle: The right ventricle is normal in size and function. Atria: The left atrial size is normal. Right atrial size is normal. There is no Doppler evidence for an interatrial shunt. Injection of contrast documented no interatrial shunt. Mitral Valve: The mitral valve is normal in structure and function. There is trace mitral regurgitation. Aortic Valve: The aortic valve is trileaflet. The aortic valve opens well. There is no aortic valve stenosis. No aortic regurgitation is present. Tricuspid Valve: The tricuspid valve is normal in structure and function. There is trace tricuspid regurgitation. Pulmonary artery pressures cannot be estimated because of the lack of a measurable TR jet velocity but the IVC suggests a CVP of around 3 mmHg. Pulmonic Valve: The pulmonic valve leaflets are thin and pliable; valve motion is normal. There is no pulmonic valvular regurgitation. Great Vessels: The aortic root is normal size. The dimensions of the ascending aorta are normal. The IVC is of normal diameter and collapses greater than 50% with a sniff. This suggests a low right atrial pressure of 3 mm Hg. Pericardium/ Pleura There is no pericardial effusion. There is no pleural effusion. MMode/2D Measurements & Calculations LVIDd: 4.4 cm LVOT diam: 2.1 cm LVIDs: 3.3 cm Ao root diam: 3.4 cm FS: 26.0 % asc Aorta Diam: 3.1 cm IVSd: 1.0 cm Ao Arch Diam (Prox Trans): 2.4 cm LVPWd: 0.90 cm LV serrano. diameter/BSA (cm/m^2): 2.4 LV sys. diameter/BSA (cm/m^2): 1.8 LA A2 area: 15.7 cm2 RA long axis: 4.6 cm LA A4 area: 12.8 cm2 RA area: 13.9 cm2 LA length (vol): 4.1 cm RA vol: 36.1 ml LA vol: 41.8 ml RA : 19.8 ml/m2 LA vol index: 23.0 ml/m2 IVC diam: 1.6 cm RVD1 (basal): 3.2 cm TAPSE: 2.0 cm Doppler Measurements & Calculations Ao V2 max: 98.8 cm/sec LVOT Max Christian: 67.9 cm/sec Ao V2 mean: 68.1 cm/sec LV V1 max P.8 mmHg Ao max P.9 mmHg LV V1 VTI: 17.2 cm Ao mean P.1 mmHg WILFRIDO(I,D): 2.1 cm2 Ao V2 VTI: 27.0 cm WILFRIDO(V,D): 2.3 cm2 sev ratio: 0.64 WILFRIDO indexed to BSA (cm^2/m^2): 1.2 MV E max christian: 63.4 cm/sec PA V2 max: 62.8 cm/sec MV A max christian: 57.6 cm/sec PA V2 mean: 43.8 cm/sec MV E/A: 1.1 PA mean P.86 mmHg Med Peak E' Christian: 6.5 cm/sec PA pr(Accel): 31.0 mmHg E/E' med: 9.8 Lat Peak E' Christian: 8.0 cm/sec E/E' lat: 7.9 E/e' average: 8.9 MV dec time: 0.19 sec SV(LVOT): 57.5 ml Reading Physician:02:41 PM
[2020-09-08] MEDS: APIXABAN 5 MG TABLET PO (11:58)
== END 2020-09-08 16:09 | disposition home or self-care (01) ==
PROVIDERS: Emergency Medicine; Emergency Provider Emergency Medicine; Family Provider Family Medicine; PCP Family Medicine
DX: R41.0 Disorientation, unspecified (principal); R41.3 Other amnesia; Z86.79 Personal history of other diseases of the circulatory system; R07.9 Chest pain, unspecified; Z20.822 Contact with and (suspected) exposure to COVID-19
CPT/HCPCS: 36415; 70450; 70496; 70498; 70548; 70553; 80053; 80305; 80320; 81001; 83690; 85025; 87635; 93005; 93306; 99285; C9803; Q9967